=== PATIENT | female | born 1990 | race African-American/Black ===

== ENCOUNTER 2016-10-15 08:08 | Emergency (ER) | payer OTHER ==
[~2016-10-15] VITALS: Ht 165.1 cm; Wt 86.0 kg
[~2016-10-15 08:08] MED LIST: MOTR200T4 PO
[2016-10-15 08:22] VITALS: BP 146/87; PULSE 74; RESP 16; TEMP 98.5; O2SAT 98
[2016-10-15 08:26] VITALS: BP 146/87; PULSE 73; RESP 16; O2SAT 98
--- NOTE | 2016-10-15 08:37 | PD ---
HPI . suicidal ideation/ depression Chief Complaint: Suicide Ideation/Attempt Time Seen by Provider: 08:30 Travel History International Travel<30 days: No Contact w/Intl Traveler<30days: No Traveled to known affect area: No [facility] Past Medical History Anemia: Yes Depression: Yes Diminished Hearing: No Influenza Vaccination: No ?: Not LMP: FIRST WEEK OF SEPTEMBER 2016 Past Surgical History Surgical History: No Previous Surgery Social History Alcohol Use: No Tobacco Use: No Substance Use: No Allergies-Medications (Allergen,Severity, Reaction): Coded Allergies: No Known Allergies (Unverified , 10/15/16) Reported Meds & Prescriptions Reported Meds & Active Scripts Active Motrin Ib (Ibuprofen) 200 Mg Tab 600 Mg PO Q6H PRN Review of Systems General / Constitutional: No: Fever Eyes: No: Visual changes HENT: No: Headaches Cardiovascular: No: Chest Pain or Discomfort Respiratory: No: Shortness of Breath Gastrointestinal: No: Abdominal Pain Genitourinary: No: Dysuria Musculoskeletal: No: Pain Skin: No Rash Neurologic: No: Weakness Psychiatric: No: Depression Endocrine: No: Polydipsia Hematologic/Lymphatic: No: Easy Bruising Data Data Last Documented VS Vital Signs Date Time Temp Pulse Resp B/P Pulse Ox O2 Delivery O2 Flow Rate FiO2 10/15/16 08:26 73 16 146/87 98 Room Air 10/15/16 08:22 98.5 Iva Munoz October 15, 2016 08:37
--- NOTE | 2016-10-15 08:42 | PD ---
Physical Exam Date Seen by Provider: October 15, 2016 Time Seen by Provider: 08:30 Narrative This is 25-year-old female who was transferred from [place] emergency room secondary suicidal ideation and depression. I've had a discussion with the patient and she tells me that she is not suicidal, but that she has depression. She tells me that her grandfather was recently in the hospital. She says that her depression has just come out of nowhere and she is very sad and tearful. She denies any suicidal ideation or attempts. However she told our nurse that she has been considering cutting her wrist. Data Data Last Documented VS Vital Signs Date Time Temp Pulse Resp B/P Pulse Ox O2 Delivery O2 Flow Rate FiO2 10/15/16 08:26 73 16 146/87 98 Room Air 10/15/16 08:22 98.5 Orders Psych Screen (10/15/16 08:51) [facility] Medical Record Reviewed: Yes Supervised Visit with JESSICA: No Differential Diagnosis depression, suicidal ideation, bipolar disorder Narrative Course This is 25-year-old female who was transferred from [place] emergency room secondary suicidal ideation and depression. I've had a discussion with the patient and she tells me that she is not suicidal, but that she has depression. She tells me that her grandfather was recently in the hospital. She says that her depression has just come out of nowhere and she is very sad and tearful. She denies any suicidal ideation or attempts. However she told our nurse that she has been considering cutting her wrist. Patient seen and examined. Her exam is unremarkable. She has already been medically cleared for psych screen. Diagnosis Primary Impression: Severe major depression Additional Impression: Suicidal ideation Condition: Stable Iva Munoz October 15, 2016 08:42
--- NOTE | 2016-10-15 17:58 | PD ---
History of Present Illness Chief Complaint: Suicide Ideation/Attempt Time Seen by Provider: 17:45 Travel History International Travel<30 Days: No Contact w/Intl Traveler<30days: No Known affected area: No Legal Status Legal Status: Voluntary History of Present Illness: Narrative This is 25-year-old female with a reported history of depression who was transferred from [place] emergency room for evaluation of suicidal ideation and depression. Documentation from ED provider is included in this report: " I've had a discussion with the patient and she tells me that she is not suicidal, but that she has depression. She tells me that her grandfather was recently in the hospital. She says that her depression has just come out of nowhere and she is very sad and tearful. She denies any suicidal ideation or attempts. However she told our nurse that she has been considering cutting her wrist." EMR is reviewed. No toxicology report is available No previous contact with [facility] psychiatry. Patient is alert and oriented. Speech is clear and logical. She tells me that she is depressed and that she has been so since being a teenager . Recent stressor include her grandfather being in the hospital. She tells me she has had thoughts of wanting to cut herself but has not done so. She denies any suicidal ideation, intent or plan and that she is looking for counseling. She is working and functioning well at work. [facility] Past Medical History Anemia: Yes Depression: Yes Diminished Hearing: No Influenza Vaccination: No ?: Not LMP: FIRST WEEK OF SEPTEMBER 2016 Past Surgical History Surgical History: No Previous Surgery Psychiatric History Psychiatric History Hx Psychiatric Treatment: HX OF FAMILY COUNSELING A TEENAGER Was prescribed medication as a teenager but she never took it. History of Inpatient Treatment: No Guns or firearms in home: No Social History Single female. Lives with her parents. 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 Never . Hx Alcohol Use: No Hx Tobacco Use: No Hx Substance Use: No Hx of Substance Use Treatment: No Family Psychiatric History negative Allergies-Medications (Allergen,Severity, Reaction): Coded Allergies: No Known Allergies (Unverified , 10/15/16) Reported Meds & Prescriptions Reported Meds & Active Scripts Active Motrin Ib (Ibuprofen) 200 Mg Tab 600 Mg PO Q6H PRN Review of Systems Except as stated in HPI: all other systems reviewed are Neg Exam Alert: Yes [place]: Person (ox4) Mood: Calm Affect: Appropriate Speech: Clear, Logical Eye Contact: Normal Memory Intact: Comment (no impairmetn) Hallucinations: Other (Negative) Delusions: No Suicidal: Ideation (denies any) Homicidal: Ideation (denies any) Insight/Judgement Fair. Not impaired. MDM Medical Decision Making Medical Record Reviewed: Yes Assessment/Plan Does not meet criteria for inpatient treatment. She does not want to take medication at this time. Discharge to home with referrals for outpatient counseling. Orders Psych Screen (10/15/16 08:51) Diet Regular Basic (10/15/16 Lunch) Diet Regular Basic (10/15/16 Dinner) Results Vital Signs Date Time Temp Pulse Resp B/P Pulse Ox O2 Delivery O2 Flow Rate FiO2 10/15/16 08:26 73 16 146/87 98 Room Air 10/15/16 08:22 98.5 74 16 146/87 98 Diagnosis Primary Impression: Adjustment disorder Psychiatrically Cleared: Yes Med/ Other Pt Specific Info: No Meds Exist/No RX given Disposition: 01 DISCHARGE HOME Condition: Stable Problem Qualifiers Primary Impression: Adjustment disorder Qualified Code: F43.21 - Adjustment disorder with depressed mood Myah Raphael October 15, 2016 17:58
== END 2016-10-15 18:46 | disposition home or self-care (01) ==
LOC: NEPD 08:08 → NEPJ 18:46
DX: F43.21 Adjustment disorder with depressed mood (principal); D64.9 Anemia, unspecified; R82.90 Unspecified abnormal findings in urine
CPT/HCPCS: 80053; 80307; 81001; 85025; 87086; 99283; 99284